=== PATIENT | male | born 1950 | race Caucasian/White ===

== ENCOUNTER → 2017-01-22 | Outpatient (CLI) | payer MEDICARE, OTHER ==
--- NOTE | 2017-01-22 09:46 | RADIOLOGY REPORT (SQ) ---
EXAM DESCRIPTION: CT LUNG CANCER SCREENING COMPLETED DATE/TIME: 01/22/2017 9:07 am REASON FOR STUDY: ENCOUNTER FOR SCREENING FOR MAL STELLA OF RESPIRATORY ORGANS Z87.891 PERSONAL HISTOR Y OF NICOTINE DEPENDENCE Has the patient had a Chest CT scan within the past year? No Was the patient offered tobacco cessation counseling? Yes Was the patient engaged in shared decision making for this test? Yes Does the patient have signs or symptoms of Lung Cancer? No Is the patient a smoker? Yes How many packs per year? 365 How many years since quitting smoking? Not applicable Patients age: 66 COMPARISON: None. TECHNIQUE: Low Dose CT scan performed of the chest without intravenous contrast for purposes of scre ening for lung cancer. Images reviewed with lung, soft tissue and bone windows. Reconstructed coron al and sagittal MPR images reviewed. All images stored on PACS. All CT scanners at this facility use dose modulation, iterative reconstruction, and/or weight based d osing when appropriate to reduce radiation dose to as low as reasonably achievable (ALARA). [facility]: Dose Right [facility]: CareDose [facility]: Dose Right [facility]: Teradose 4D [facility]: [employer] RADIATION DOSE: Up-to-date CT equipment and radiation dose reduction techniques were employed. CTDIv ol: 2.1 mGy. DLP: 84 mGy-cm. mGy. . LIMITATIONS: No technical limitations. FINDINGS: LUNG NODULES: A 5.4 mm subpleural round noncalcified nodule is present in the periphery o f the right lower lobe, axial image 327/542. Multiple less than 4 mm subpleural noncalcified smooth round nodules are present in the right lower l obe, axial image 270, 299, 327. Multiple less than 4 mm subpleural noncalcified smooth round nodules are present in the periphery of the left lower lobe axial image 302, 329, 367. A calcified granuloma is present in the superior segment left lower lobe axial image 228. REMAINING LUNGS AND PLEURA: No pleural effusions or calcifications. No pneumothorax. There is m ild interstitial disease with thickened interlobular septa and mild honeycombing around the periphery of both lungs. HILAR AND MEDIASTINAL STRUCTURES: No identified masses. No abnormal nodes. Calcified left hilar lymp h nodes from old granulomatous disease. HEART AND VASCULAR STRUCTURES: Ascending aorta just above the aortic valve 4.4 cm in diameter. No pe ricardial effusion. No cardiac devices. CORONARY ARTERY CALCIFICATIONS: No significant calcifications. UPPER ABDOMEN, THYROID, BONES, OTHER SOFT TISSUES: No significant findings. IMPRESSION: BENIGN FINDINGS IN THE LUNGS. NO OTHER CLINICALLY SIGNIFICANT/POTENTIALLY CLINICALLY SIGNIFICANT FINDINGS LUNGRADS: LUNGRADS: 2 BENIGN APPEARANCE OR BEHAVIOR. NODULES WITH A VERY LOW LIKELIHOOD OF BECOMING A CLINICALLY ACTIVE CANCER DUE TO SIZE OR LACK OF GROWTH. MODIFIER: NONE. RECOMMENDATION: Continue annual screening with LDCT in 12 months. COMMENT: CRITERIA: Solid nodule(s): < 6 mm; new < 4 mm. Part solid nodule(s): < 6 mm total diameter on baseline screening. Non solid nodule(s) (GGN): < 20 mm OR ? 20 and unchanged or slowly growing. Category 3 or 4 modules unchanged for ? 3 months. TECHNICAL DOCUMENTATION: JOB ID: [id number] Quality ID # [id number]: Final reports with documentation of one or more dose reduction techniques (e.g., Au tomated exposure control, adjustment of the mA and/or kV according to patient size, use of iterative reconstruction technique) 2010 [employer]
== END ==
LOC: RAD 08:49
PROVIDERS: ATTEND Family Medicine
DX: Z12.2 Encounter for screening for malignant neoplasm of respiratory organs (principal); Z87.891 Personal history of nicotine dependence
CPT/HCPCS: G0297

== ENCOUNTER 2018-10-01 07:18 | Day surgery (SDC) | payer MEDICARE, OTHER ==
[2018-10-01] MEDS ORDERED: PROPOFOL INJ 200 MG/20 ML VIAL IV ONE ×2 (08:01→08:40)
[2018-10-01 09:12] VITALS: BP 113/63
--- NOTE | 2018-10-01 14:33 | Operative Report ---
Operative Report DATE OF SURGERY: 10/01/18 Operative Report: The risks, benefits and alternatives of the procedure including the risk of bleeding, perforation requiring surgery have been explained to the patient in detail and informed consent has been obtained. Patient is taken back to the endoscopy suite and placed in a left, lateral decubital position. Timeout was called. Propofol medication is administered. Rectal examination is done which did not reveal any masses, tears or fissures. An Olympus videoscope is inserted to the patient's rectum. The scope was then carefully advanced all the way to the cecum. The cecum was identified by the usual anatomical landmarks including the ileocecal valve as well as the appendiceal office. Photodocumentation is obtained. The scope was then sequentially pulled back via the various segments of the colon including the ascending colon, hepatic flexure, transverse colon, splenic flexure, descending colon and finally into the rectosigmoid portions of the colon. Retroflexion maneuvers performed. PREOPERATIVE DIAGNOSIS: Colorectal cancer screening. Patient states that previous colonoscopy 10 years ago performed at the surgery center. He is unable to recall the name of the physician that performed. POSTOPERATIVE DIAGNOSIS: Hepatic flexure polyp too big to be removed via snare polypectomy. Biopsy obtained. Areas tattooed with submucosal Soledad ink injection for location for potential surgical removal. Will refer to [facility]. Diverticulosis without any evidence of diverticulitis. Internal hemorrhoids OPERATION: Colonoscopy with submucosal Soledad ink injection. Colonoscopy with biopsy SURGEON: TU ROMAN ANESTHESIA: LMAC TISSUE REMOVED OR ALTERED: As noted above COMPLICATIONS: None. ESTIMATED BLOOD LOSS: None. INTRAOPERATIVE FINDINGS: As noted above. PROCEDURE: Patient tolerated the procedure well. No immediate postprocedure complications are noted. Patient is discharged in good condition. Discharge date 10/01/2018. Discharge diet: Regular. Discharge activity: Regular. 2 to 3-week follow-up to discuss findings. Patient is instructed to call the office or proceed to the emergency room should there be any further questions. Wait on the pathology. Patient will be referred to surgical office for potential removal
== END 2018-10-01 09:30 | disposition home or self-care (01) ==
LOC: END 07:18
PROVIDERS: ATTEND Internal Medicine Gastroenterology
DX: Z12.11 Encounter for screening for malignant neoplasm of colon (principal); D12.6 Benign neoplasm of colon, unspecified; K57.30 Diverticulosis of large intestine without perforation or abscess without bleeding; K64.8 Other hemorrhoids; I10 Essential (primary) hypertension
CPT/HCPCS: 45380; 45381; 88305 ×2; J2704; 811

== ENCOUNTER → 2018-10-18 | Outpatient (CLI) | payer MEDICARE, OTHER ==
[2018-10-18 12:28] LABS: HEMATOCRIT 43.4 % (37.9-51.0); MEAN CORPUSCULAR HEMOGLOBIN 32.3 pg (27.0-33.4); MEAN CORPUSCULAR HGB CONC 34.5 g/dL (32.0-36.0); MEAN CORPUSCULAR VOLUME 94 fl (80-97); PLATELET COUNT 279 10^3/uL (150-450); RED BLOOD COUNT 4.63 10^6/uL (4.35-5.55); RED CELL DISTRIBUTION WIDTH 12.7 % (11.5-14.0); WHITE BLOOD COUNT 9.5 10^3/uL (4.0-10.5)
--- NOTE | 2018-10-18 12:55 | RADIOLOGY REPORT (SQ) ---
EXAM DESCRIPTION: CHEST PA/LATERAL COMPLETED DATE/TIME: 10/18/2018 11:43 am REASON FOR STUDY: PRE-OP COMPARISON: 01/22/2017 TECHNIQUE: Frontal and lateral views chest NUMBER OF VIEWS: 2 LIMITATIONS: None. FINDINGS: LUNGS AND PLEURA: No pneumothorax. Mildly increased interstitial markings. No consolidat ion or pleural effusion. MEDIASTINUM AND HILAR STRUCTURES: Stable. HEART AND VASCULAR STRUCTURES: Stable. BONES: No acute findings. HARDWARE: None in the chest. OTHER: No other significant finding. IMPRESSION: Mildly increased interstitial markings. No consolidation or pleural effusion. TECHNICAL DOCUMENTATION: JOB ID: [id number] [place]-72 2010 [employer]- All Rights Reserved Reading location - IP/workstation name: [email or web address]
[2018-10-18 12:59] LABS: ANION GAP 10 (5-19); BLOOD UREA NITROGEN 17 mg/dL (7-20); CALCIUM 9.7 mg/dL (8.4-10.2); CARBON DIOXIDE 23 mmol/L (22-30); CHLORIDE 106 mmol/L (98-107); GLUCOSE 96 mg/dL (75-110); POTASSIUM 4.6 mmol/L (3.6-5.0); SODIUM 138.6 mmol/L (137-145)
--- NOTE | 2018-10-18 23:27 | EKG REPORT ---
SEVERITY:- NORMAL ECG - SINUS RHYTHM : Confirmed by: Mahogany Valdivia MD 18-Oct-2018 23:27:08
== END ==
LOC: OD 11:14
PROVIDERS: ATTEND Surgery
DX: Z01.818 Encounter for other preprocedural examination (principal); D36.9 Benign neoplasm, unspecified site; I10 Essential (primary) hypertension; F17.200 Nicotine dependence, unspecified, uncomplicated
CPT/HCPCS: 36415; 71046; 80048; 85027; 93005; 93010

== ENCOUNTER 2018-11-02 07:47 | Day surgery (SDC) | payer MEDICARE, OTHER ==
[~2018-11-02 07:47] MED LIST: LACTATED RINGERS 1000 ML IV PRN; LIDOCAINE 0.5% INJ-PF (5 MG/ML) 50 ML SDV SUBCUT PRN; PROPOFOL INJ 200 MG/20 ML VIAL IV ONE
[2018-11-02] MEDS ORDERED: DIPHENHYDRAMINE HCL 50 MG/ML VIAL IV PRN (09:31)
[2018-11-02] MEDS ORDERED: MEPERIDINE HCL/PF INJ 25 MG/1 ML DISP.SYRIN IV PRN (09:31)
[2018-11-02] MEDS ORDERED: EPHEDRINE SULFATE INJ 50 MG/1 ML AMPULE ONE (09:52)
[2018-11-02] MEDS ORDERED: PROPOFOL INJ 200 MG/20 ML VIAL IV ONE (09:53)
--- NOTE | 2018-11-02 10:09 | Operative Report ---
Nonrecallable Operative Report DATE OF SURGERY: 11/02/18 PREOPERATIVE DIAGNOSIS: Sessile polyp of the hepatic flexure POSTOPERATIVE DIAGNOSIS: Sessile polyp of the hepatic flexure, removed in piecemeal fashion. OPERATION: 1. Colonoscopy to the ascending colon. 2. Endoscopic mucosal resection of sessile hepatic flexure polyp, using a hexagonal cap-sure snare. 3. Submucosal injection of saline to facilitate endoscopic mucosal resection. SURGEON: DEJAH MAYNARD ANESTHESIA: LMAC TISSUE REMOVED OR ALTERED: Hepatic flexure polyp COMPLICATIONS: None apparent ESTIMATED BLOOD LOSS: Minimal PROCEDURE: Drains/implants: None. Procedure in detail: After informed consent was obtained, the patient was brought to the operating room and laid in the left lateral decubitus position. The endoscope was inserted in the rectum. It was passed up the rectum, sigmoid colon, descending colon, across the transverse colon, down the ascending colon. The cecum was identified, however was not entered. The prep was good. The scope was withdrawn past the ascending colon and into the hepatic flexure. In the bend of the hepatic flexure a large, sessile polyp was identified. Saline was used to elevate the polyp. It was injected in the submucosal plane. Once elevation was achieved, the hexagonal snare was used to remove the polyp in piecemeal fashion. Once this was completed, the scope was withdrawn past the transverse colon, descending colon, sigmoid colon, and into the rectum. The scope was then removed from the patient. At this time the procedure was concluded. All sponge, instrument, and needle counts were correct x2. No other masses or lesions could be identified except for the hepatic flexure polyp. There were scattered diverticulosis throughout the sigmoid colon. Condition: Stable.
--- NOTE | 2018-11-02 10:11 | Discharge Summary ---
Discharge Summary (SDC) - Discharge Final Diagnosis: Hepatic flexure polyp, removed in piecemeal fashion. Date of Surgery: 11/02/18 Discharge Date: 11/02/18 Condition: Stable Treatment or Instructions: Discharge home. Diet as tolerated. Activity: Nonstrenuous. Follow-up with me in 2 weeks. Referrals: SEAN LINDA DO [Primary Care Provider] - Discharge Diet: As Tolerated Respiratory Treatments at Home: Deep Breathing/Coughing, Incentive Spirometer Discharge Activity: Balance Activity w/Rest Home Care Assistance: None Needed Report the Following to Your Physician Immediately: Shortness of Breath, Nausea, Vomiting, Increase in Pain, Fever over 101 Degrees, Unusual Bleeding, Redness
[2018-11-02 13:40] VITALS: BP 112/71
== END 2018-11-02 10:55 | disposition home or self-care (01) ==
LOC: OROUT 07:47
PROVIDERS: ATTEND Surgery
DX: D12.6 Benign neoplasm of colon, unspecified (principal); I10 Essential (primary) hypertension; F17.210 Nicotine dependence, cigarettes, uncomplicated; Z79.899 Other long term (current) drug therapy
CPT/HCPCS: 45380; 88305 ×2; 00811; J3490; J2704; 811

== ENCOUNTER → 2019-02-01 | Outpatient (CLI) | payer MEDICARE, OTHER ==
--- NOTE | 2019-02-01 16:58 | RADIOLOGY REPORT (SQ) ---
EXAM DESCRIPTION: CHEST PA/LATERAL COMPLETED DATE/TIME: 02/01/2019 4:37 pm REASON FOR STUDY: COUGH COMPARISON: 10/18/2018 EXAM PARAMETERS: NUMBER OF VIEWS: two views TECHNIQUE: Digital Frontal and Lateral radiographic views of the chest acquired. RADIATION DOSE: NA LIMITATIONS: none FINDINGS: LUNGS AND PLEURA: Chronic interstitial changes. No infiltrate, effusion, or mass. MEDIASTINUM AND HILAR STRUCTURES: No masses or contour abnormalities. HEART AND VASCULAR STRUCTURES: Heart normal size. No evidence for failure. BONES: No acute findings. HARDWARE: None in the chest. OTHER: No other significant finding. IMPRESSION: Chronic lung changes with no acute cardiopulmonary findings. TECHNICAL DOCUMENTATION: JOB ID: [id number] [employer]- All Rights Reserved Reading location - IP/workstation name: [email or web address]
[2019-02-01 17:21] LABS: HEMATOCRIT 41.2 % (37.9-51.0); HEMOGLOBIN 14.4 g/dL (13.5-17.0); MEAN CORPUSCULAR HEMOGLOBIN 32.7 pg (27.0-33.4); MEAN CORPUSCULAR HGB CONC 34.9 g/dL (32.0-36.0); MEAN CORPUSCULAR VOLUME 94 fl (80-97); PLATELET COUNT 250 10^3/uL (150-450); RED CELL DISTRIBUTION WIDTH 12.5 % (11.5-14.0); WHITE BLOOD COUNT 9.1 10^3/uL (4.0-10.5)
[2019-02-01 17:57] LABS: ANION GAP 8 (5-19); BLOOD UREA NITROGEN 14 mg/dL (7-20); CALCIUM 9.2 mg/dL (8.4-10.2); CARBON DIOXIDE 25 mmol/L (22-30); CHLORIDE 105 mmol/L (98-107); GLUCOSE 94 mg/dL (75-110)
--- NOTE | 2019-02-01 20:53 | EKG REPORT ---
SEVERITY:- OTHERWISE NORMAL ECG - SINUS RHYTHM ATRIAL PREMATURE COMPLEX : Confirmed by: Mahogany Valdivia MD 01-Feb-2019 20:52:42
== END ==
LOC: OD 15:58
PROVIDERS: ATTEND Surgery
DX: Z01.818 Encounter for other preprocedural examination (principal); K40.20 Bilateral inguinal hernia, without obstruction or gangrene, not specified as recurrent; I10 Essential (primary) hypertension; F17.200 Nicotine dependence, unspecified, uncomplicated; D12.6 Benign neoplasm of colon, unspecified
CPT/HCPCS: 36415; 71046; 80048; 85027; 93005; 93010

== ENCOUNTER 2019-10-07 09:32 | Day surgery (SDC) | payer MEDICARE, BC ==
[2019-10-03 09:34] LABS: HEMATOCRIT 43.5 % (37.9-51.0); HEMOGLOBIN 15.3 g/dL (13.5-17.0); MEAN CORPUSCULAR HEMOGLOBIN 32.9 pg (27.0-33.4); MEAN CORPUSCULAR HGB CONC 35.2 g/dL (32.0-36.0); MEAN CORPUSCULAR VOLUME 94 fl (80-97); PLATELET COUNT 292 10^3/uL (150-450); RED BLOOD COUNT 4.65 10^6/uL (4.35-5.55); RED CELL DISTRIBUTION WIDTH 12.6 % (11.5-14.0); WHITE BLOOD COUNT 9.7 10^3/uL (4.0-10.5)
[~2019-10-07 09:32] MED LIST changes: +ACETAMINOPHEN 325 MG TABLET PO PRN; -PROPOFOL INJ 200 MG/20 ML VIAL IV ONE; +RINGERS SOLUTION,LACTATED 1,000 ML IV PRN
[2019-10-07] MEDS ORDERED: PROPOFOL INJ 200 MG/20 ML VIAL IV ONE ×2 (10:37→13:51)
--- NOTE | 2019-10-07 12:26 | Operative Report ---
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 Same as above. 2. Small area of residual adenomatous tissue in the hepatic flexure, adjacent to the scar. This was removed via snare polypectomy. OPERATION: 1. Colonoscopy to the cecum. 2. Snare polypectomy at hepatic flexure. SURGEON: DEJAH MAYNARD ANESTHESIA: LMAC TISSUE REMOVED OR ALTERED: Hepatic flexure polyp COMPLICATIONS: None apparent ESTIMATED BLOOD LOSS: Minimal PROCEDURE: Procedure in detail: After informed consent was obtained, the patient was brought into the operating room and laid in the left lateral decubitus position. The endoscope was inserted into the rectum. It was passed up the rectum, sigmoid colon, descending colon, across the transverse colon, down the ascending colon, and into the cecum. The ileocecal valve and appendiceal orifice were identified. The scope was then withdrawn, circumferentially noting the mucosa. The prep was good. Scope was withdrawn past the ascending colon, to the hepatic flexure. The previous scar as well as tattoo was identified. There was a small amount of adenomatous tissue at the margin of the scar. I believe this to be residual adenomatous tissue. This tissue was removed in its entirety via snare polypectomy. The scope was then withdrawn past the transverse colon, descending colon, sigmoid colon, and into the rectum. No other polyps or adenomatous tissue could be identified. Air was then suctioned from the rectum, the scope was removed, and the procedure was concluded. Condition: Stable.
--- NOTE | 2019-10-07 12:27 | Discharge Summary ---
Discharge Summary (SDC) - Discharge Final Diagnosis: Hepatic flexure colon polyp Date of Surgery: 10/07/19 Discharge Date: 10/07/19 Condition: Stable Treatment or Instructions: Discharge home. Diet as tolerated. Activity: Nonstrenuous. Follow-up with [facility] in 7 to 10 days. Referrals: SEAN LINDA DO [Primary Care Provider] - Discharge Diet: As Tolerated Respiratory Treatments at Home: Deep Breathing/Coughing, Incentive Spirometer Discharge Activity: Balance Activity w/Rest Home Care Assistance: None Needed Report the Following to Your Physician Immediately: Shortness of Breath, Nausea, Vomiting, Increase in Pain, Fever over 101 Degrees, Unusual Bleeding
[2019-10-07] MEDS ORDERED: EPHEDRINE SULFATE INJ 50 MG/1 ML AMPULE ONE (13:51)
[2019-10-07 13:53] VITALS: BP 98/57
[2019-10-07] MEDS ORDERED: GLYCOPYRROLATE 1 MG/5 ML VIAL ONE (14:39)
== END 2019-10-07 14:00 | disposition home or self-care (01) ==
LOC: OROUT 09:32
PROVIDERS: ATTEND Surgery
DX: Z12.11 Encounter for screening for malignant neoplasm of colon (principal); D12.6 Benign neoplasm of colon, unspecified; I10 Essential (primary) hypertension; F17.210 Nicotine dependence, cigarettes, uncomplicated; Z79.899 Other long term (current) drug therapy; Z03.818 Encounter for observation for suspected exposure to other biological agents ruled out; Z86.010 Personal history of colon polyps
CPT/HCPCS: 45385; 36415; 85027; 88305 ×2; 00811; U0003; J3490 ×2; J2704; C9803; 811; 87635